=== PATIENT | female | born 1965 | race Caucasian/White ===

== ENCOUNTER → 2021-01-05 | Outpatient (CLI) | payer OTHER ==
[~2021-01-05] MED LIST: Birth Control PO; FEXO60TA24 PO; LEVO50TA PO
== END | disposition home or self-care (01) ==
LOC: STAR 15:01
PROVIDERS: ATTEND Specialist
DX: Z20.822 Contact with and (suspected) exposure to COVID-19 (principal); R93.89 Abnormal findings on diagnostic imaging of other specified body structures; N93.8 Other specified abnormal uterine and vaginal bleeding
CPT/HCPCS: U0003; U0005

== ENCOUNTER 2021-01-09 11:38 | Day surgery (SDC) | payer OTHER ==
[~2021-01-09] VITALS: Ht 167.6 cm; Wt 59.4 kg
[~2021-01-09 11:38] MED LIST changes: +BUPIVACAINE/PF 0.25% ONE
[2021-01-09 12:25] VITALS: BP 109/67
[2021-01-09] MEDS ORDERED: CHLORHEXIDINE 15 ML UDC ONE (12:30)
[2021-01-09] MEDS ORDERED: CHLORHEXIDINE 15 ML UDC PO ONE (12:30)
[2021-01-09 12:32] LABS: HCG UR SG 1.002 (1.003-1.030)
[2021-01-09] MEDS ORDERED: LACTATED RINGERS 1,000 ML IV SCH (13:30)
[2021-01-09] MEDS ORDERED: LABETALOL 5MG/ML, 20ML IV PRN (14:00)
[2021-01-09] MEDS ORDERED: MEPERIDINE/PF 25MG/0.5ML IVPush PRN (14:00)
[2021-01-09] MEDS ORDERED: HALOPERIDOL 5 MG/ML IV PRN (14:00)
[2021-01-09] MEDS ORDERED: FENTANYL PF 100 MCG/2ML IV PRN (14:00)
[2021-01-09] MEDS ORDERED: HYDROmorphone 1 MG/ML, 1ML INJ IVPush PRN (14:00)
[2021-01-09] MEDS ORDERED: OXYcodone 5 MG/5 ML ORAL.SOL UDC PO PRN (14:00)
[2021-01-09] MEDS ORDERED: PROMETHAZINE 25 MG/ML, 1ML IVPush PRN (14:00)
[2021-01-09] MEDS ORDERED: ACETAMINOPHEN 325 MG TABLET PO PRN (14:00)
[2021-01-09] MEDS ORDERED: hydrALAzine 20 MG/ML, 1ML IV PRN (14:00)
[2021-01-09] MEDS ORDERED: LORazepam 2 MG/ML, 1ML IVPush PRN (14:00)
[2021-01-09] MEDS ORDERED: FENTANYL PF 250 MCG/5ML ONE (14:01)
[2021-01-09] MEDS ORDERED: MIDAZOLAM 1 MG/ML, 2ML ONE (14:01)
[2021-01-09] MEDS ORDERED: KETOROLAC 30 MG/1 ML ONE (14:51)
[2021-01-09] MEDS ORDERED: PROPOFOL 10 MG/ML, 20ML ONE (14:51)
[2021-01-09] MEDS ORDERED: ONDANSETRON 2MG/ML, 2ML ONE (14:51)
[2021-01-09] MEDS ORDERED: DEXAMETHASONE 4 MG/ML, 1ML ONE (14:51)
[2021-01-09] MEDS ORDERED: BUPIVACAINE/PF-EPI 0.25% 1:200K INFIL ONE (15:04)
== END 2021-01-09 16:55 | disposition home or self-care (01) ==
LOC: OUT 11:38
PROVIDERS: ATTEND Specialist
DX: N93.9 Abnormal uterine and vaginal bleeding, unspecified (principal); N84.0 Polyp of corpus uteri; D25.0 Submucous leiomyoma of uterus; E78.5 Hyperlipidemia, unspecified; Z79.890 Hormone replacement therapy; Z79.899 Other long term (current) drug therapy; Z82.0 Family history of epilepsy and other diseases of the nervous system
CPT/HCPCS: 58558; 81025; 88305; J1100; J1885; J2250; J2405; J2704; J3010; J7120